=== PATIENT | female | born 1955 | race Caucasian/White ===

== ENCOUNTER → 2023-12-01 09:24 | Outpatient (REF) | payer MEDICARE, OTHER, SELFPAY | LOC: RAD 09:24 | PROVIDERS: ATTENDING PHYSICIAN Obstetrics & Gynecology; FAMILY PHYSICIAN Internal Medicine Geriatric Medicine | DX: Z78.0 Asymptomatic menopausal state (principal); M85.80 Other specified disorders of bone density and structure, unspecified site; Z01.419 Encounter for gynecological examination (general) (routine) without abnormal findings | CPT/HCPCS: 77080 ==

== ENCOUNTER → 2023-12-23 16:38 | Outpatient (REF) | payer MEDICARE, OTHER, SELFPAY | LOC: MRI 3T 16:38 | PROVIDERS: ATTENDING PHYSICIAN Obstetrics & Gynecology; FAMILY PHYSICIAN Internal Medicine Geriatric Medicine | DX: Z91.89 Other specified personal risk factors, not elsewhere classified (principal) | CPT/HCPCS: 77049; A9585 ==

== ENCOUNTER 2024-01-01 10:28 | Emergency (ER) | payer MEDICARE, OTHER, SELFPAY ==
[2024-01-01 10:37] VITALS: BP 179/82
[2024-01-01] MEDS: MOTRIN 600 MG PO (12:19)
--- NOTE | 2024-01-01 13:20 | ED.GENMED ---
History of Present Illness
General
Chief Complaint: Fall
Source: patient
Time Seen by Provider: 01/01/24 11:06
History of Present Illness
History of Present Illness:
68yoF with no significant past medical history presenting for evaluation after a fall shortly prior to arrival. Patient was running when she tripped on wet leaves and landed on her bilateral hands and knees. She denies any head strike or LOC. She
sustained lacerations to bilateral knees during the fall. Patient reports bilateral knee pain. No other complaints. Last Tdap was 3 years ago.
Past History
Past History
ED Past Medical History: Other (Trigeminal neuralgia)
ED Past Surgical History: and Orthopedic
Social History
Tobacco: Non-smoker
Personal:
Phy Exam
General Physical Exam
General Presentation: well appearing and no apparent distress
General age: appears stated age
General Skin: warm and dry
General Habitus: normal
General Mental: alert
ENT Exam
ENT Exam: normocephalic
Pulmonary Exam
Pulmonary Exam: no respiratory distress
Neurological Exam
Neurological Exam: alert, no motor deficits, normal gait and other
[place] Coma Scale
Eye Opening: Spontaneous
Verbal Response: Oriented
Motor Response: Obeys Commands
GCS Total Score: 15
Musculoskeletal Exam
Musculoskeletal Exam: other (V shaped laceration present to the anterior R knee. Jagged lacerations present to the L knee with surrounding tenderness. Both lacerations are contaminated with gravel. )
Skin Exam
Skin Exam: normal color and warm/dry
Psychiatric Exam
Psychiatric Exam: normal mood/affect
Course
Orders/Labs/Results
Orders:
Orders
01/01/24 10:40
CR Knee - Left 4 Or More View* Urgent
Comment:
Reason For Exam: fall
Knee, Right 4 or More Views [CR Knee- Right 4 Or More View*] Urgent
Comment:
Reason For Exam: fall
01/01/24 12:17
Ibuprofen [Motrin] 600 mg PO NOW STA
01/01/24 13:52
Bacitracin Zinc [Bacitracin Ointment] See Dose Instructions TOPICAL PRN PRN
Vital Signs
Initial and Last Documented VS:
Initial Vital Signs
Temp Pulse Resp BP Pulse Ox
98.1 F 93 16 179/82 96
01/01/24 10:37 01/01/24 10:37 01/01/24 10:37 01/01/24 10:37 01/01/24 10:37
Last Documented Vital Signs
Temp Pulse Resp BP Pulse Ox
98.1 F 93 16 179/82 96
01/01/24 10:37 01/01/24 10:37 01/01/24 10:37 01/01/24 10:37 01/01/24 10:37
Procedures
Laceration Closure
Right Anterior Knee:
Status of Wound: dirty and imbedded foreign material
Size of Wound in cm: 6
Description of Wound Edges: ragged and other (V shaped laceration with flap)
Preparation: cleaned with saline and cleaned with Betadine
Anesthesia: 1% Lidocaine with epi
Revision/Debridement: debrided and irrigate-direct pressure
Wound exploration: extensive cleaning of contaminated wound and all visible FB removed
Type of Closure: single layer closure
Skin Closure Material: 3-0 nylon
Number of sutures: 8
Left Anterior Knee:
Status of Wound: dirty and imbedded foreign material
Size of Wound in cm: 4
Description of Wound Edges: ragged and surrounded by abrasion
Preparation: cleaned with saline and cleaned with Betadine
Anesthesia: 1% Lidocaine with epi
Revision/Debridement: debrided and irrigate-direct pressure
Wound exploration: extensive cleaning of contaminated wound and all visible FB removed
Type of Closure: single layer closure
Skin Closure Material: 3-0 nylon
Number of sutures: 6
MDM/Problems Addressed
Differential Diagnosis Includes:
68yoF here with bilateral knee lacerations after falling while running. Jagged lacerations noted on exam with imbedded gravel. She is hypertensive on arrival with otherwise normal vitals. Differential diagnosis includes but is not limited to:
laceration, contusion, fracture
X-rays of bilateral knees obtained which are negative for fractures. Wounds were extensively irrigated and all visible gravel was removed. Wounds were repaired as above. She tolerated well without immediate complications. Will start on Augmentin for
infection prophylaxis. Home wound care discussed. Patient advised to have sutures removed in 14 days and she was advised to return to the ED with any signs of infection. She expressed understanding and was discharged in stable condition.
*Critical Care Note
Total Time (30-74mins, 75-104mins- exclusive of procedures): Not Applicable
ED Attending Note
-
Portions of this chart may have been created with voice recognition software.� Occasional wrong word or��sound alike� substitutions may have occurred due to the inherent limitations of voice recognition software.
Discharge Plan
Departure
Patient Disposition: Home (Routine Discharge)
Date of Disposition: 01/01/24
Time of Disposition: 13:22
Patient with high blood pressure during this ER visit?: Yes
Discharge Problem:
Laceration of knee with foreign body
Instructions: Laceration Repair With Stitches (DC)
Prescriptions:
New
amoxicillin-pot clavulanate 875-125 mg tablet
1 tab PO BID Qty: 14 0RF
No Action
gabapentin 300 MG capsule
600 mg PO TID PRN (Reason: pain)
oxycodone 5 MG tablet
5 mg PO Q4HPRN PRN (Reason: pain) Qty: 30 0RF
Referrals:
Piotr Hester MD [Family Provider] -
Activity Restrictions/Additional Instructions:
Keep wound clean and dry. Do not get wet for the first 24 hours. Change dressings daily. Take Augmentin for infection prevention.
Sutures should be removed in 14 days. Return to the ER with any signs of infection.
Interventions
Interventions:
*Risk Screen - Suicide Last Done: 01/01/24 10:37
*General Assessment Last Done: 01/01/24 10:37
*Neglect/Abuse Screening Last Done: 01/01/24 10:37
ED- Fall Risk Assessment Last Done: 01/01/24 14:16
*Nursing Disposition Last Done: 01/01/24 14:16
ED-Musculoskeletal Assessment Last Done: 01/01/24 12:24
ED- Neurological Assessment Last Done: 01/01/24 12:24
ED-Skin Assessment Last Done: 01/01/24 12:24
Discharge Date and Time
Discharge Date/Time: 01/01/24 14:17
Print Language: MACEDONIAN
== END 2024-01-01 14:17 | disposition home or self-care (01) ==
LOC: EMR 10:28
PROVIDERS: EMERGENCY PHYSICIAN Emergency Medicine; FAMILY PHYSICIAN Internal Medicine Geriatric Medicine
DX: S81.022A Laceration with foreign body, left knee, initial encounter (principal); S81.021A Laceration with foreign body, right knee, initial encounter; W18.09XA Striking against other object with subsequent fall, initial encounter
CPT/HCPCS: 12034; 99283; 73564

== ENCOUNTER 2024-01-03 19:15 | Inpatient (IN) | payer MEDICARE, OTHER, SELFPAY ==
[2024-01-03] VITALS (7 sets, daily range): BP systolic 131–181; BP diastolic 59–84; BMI 19.8
--- NOTE | 2024-01-03 16:41 | ED.GENMED ---
History of Present Illness
General
Chief Complaint: Skin Problem
Source: patient
Exam Limitations: none
Time Seen by Provider: 01/03/24 16:20
History of Present Illness
History of Present Illness:
See MDM
Past History
Past History
ED Past Medical History: Other (Trigeminal neuralgia)
ED Past Surgical History: and Orthopedic
Social History
Tobacco: Non-smoker
Personal:
Phy Exam
Physical Exam
Physical Exam:
See MDM
Course
Orders/Labs/Results
Orders:
Orders
01/03/24 16:36
Doxycycline Hyclate [Vibramycin] 100 mg 0.9% Sodium Chloride 250 ml [Nss] 250 ml IV NOW
01/03/24 17:07
Complete Blood Count/With Diff Urgent
Wound Culture [Wound/Abscess/Other Culture] Urgent
ROBERT Source: Abscess
Specimen Description:
Date Specimen was Collected: 01/03/24
Time Specimen was Collected: 16:34
Comment: R knee
01/03/24 18:04
Comprehensive Metabolic Panel Urgent
Abnormal Lab Results
01/03/24
17:07
WBC 14.2 H 10^3/uL
(4.8-10.8)
RBC 4.13 L 10^6/uL
(4.20-5.40)
Hct 36.3 L %
(37.0-47.0)
MPV 11.0 H fL
(7.4-10.4)
Abs Immat Gran (auto) 0.1 H 10^3/uL
(0-0.05)
Absolute Neuts (auto) 10.9 H 10^3/uL
(1.4-6.5)
Absolute Monos (auto) 1.4 H 10^3/uL
(0.1-0.6)
Neutrophils % 77.2 H %
(42.2-75.2)
Lymphocytes % 9.9 L %
(20.5-51.1)
Monocytes % 10.1 H %
(1.7-9.3)
01/03/24 17:07
Vital Signs
Initial and Last Documented VS:
Initial Vital Signs
Temp Pulse Resp BP Pulse Ox
98.0 F 86 16 180/80 98
01/03/24 15:39 01/03/24 15:39 01/03/24 15:39 01/03/24 15:39 01/03/24 15:39
Last Documented Vital Signs
Temp Pulse Resp BP Pulse Ox
98.0 F 72 13 167/74 99
01/03/24 15:39 01/03/24 17:45 01/03/24 17:45 01/03/24 17:00 01/03/24 17:45
MDM/Problems Addressed
Differential Diagnosis Includes:
HPI and MDM Narrative:
68-year-old female presenting with redness and swelling to her right knee. Patient had a trip and fall recently and came to the emergency department requiring stitches to both knees. Patient does acknowledge that the wounds appeared dirty with
gravel. She states that a lot of time spent emergency department to clean out the wounds
Patient was placed on Augmentin. Over the past day or so, she noted worsening swelling to the right knee where the wound was stitched.
On exam, patient has cellulitic changes around the right knee wound. The skin overlying the knee is also cellulitic but there is no micromotion tenderness to suspect intra-articular infection
There is discharge noted to the medial aspect of the wound. Because of this, 2 stitches were removed and the wound was washed with Betadine and saline. Pus was removed and culture was placed
Patient will require MRSA coverage. Will start doxycycline
Physical exam
General: Well appearing and non-toxic
HEENT: protecting airway
Neck: appears supple
CV: No evidence of cyanosis
Resp: No accessory muscle use
Abd: Non-distended
Extremities: Swelling and erythema to right knee and right knee wound
Neuro: alert
Psych: Normal affect
Skin: Infected right knee wound with pus.
Problems Addressed including Acute and Chronic Conditions affecting care:
1. [Infected right knee wound
Acuity: acute
Prognosis: stable
Details: Patient feeling antibiotics. Will increase coverage to cover MRSA. Will start doxycycline. Wound culture obtained
Updates
Technically, patient is failing antibiotic coverage. Patient started IV doxycycline and will admit
Differential Diagnosis (but not limited to): Cellulitis, abscess
Testing considered: The x-ray
Drug therapy (if applicable): OTC meds, please see d/c instruction regarding Rx drugs
Amount and/or Complexity of Data Reviewed
Clinical info obtained from: Patient
External data reviewed: N/A
Labs I independently reviewed (but not limited to): Leukocytosis
Radiology: N/A
Pulse Ox: not hypoxic
EKG independently reviewed: N/A
Rigging Engineer: N/A
Critical Care: N/A
Risk of Complication:
Social Determinants of health: Good social support
Discussed with other providers: Hospitalist
Escalation of Care includes Admit/Obs: Given outpatient failure of antibiotics, will admit for IV antibiotics
Occasional wrong word or 'sound a like' substitutions may have occurred due to the inherent limitations of voice recognition software. Read the chart carefully and recognize, using context, where substitutions have occurred.
*Critical Care Note
Total Time (30-74mins, 75-104mins- exclusive of procedures): Not Applicable
ED Attending Note
-
Portions of this chart may have been created with voice recognition software.� Occasional wrong word or��sound alike� substitutions may have occurred due to the inherent limitations of voice recognition software.
Discharge Plan
Departure
Patient Disposition: Admit
Date of Disposition: 01/03/24
Time of Disposition: 17:38
Admit to: Med/Surg
Presentation/result/management discussed w/ accepting MD/DO: Hospitalist
Patient with high blood pressure during this ER visit?: Yes
Discharge Problem:
Infected laceration
Prescriptions:
New
doxycycline hyclate 100 mg capsule
100 mg PO BID Qty: 20 0RF
No Action
gabapentin 300 MG capsule
600 mg PO TID PRN (Reason: pain)
oxycodone 5 MG tablet
5 mg PO Q4HPRN PRN (Reason: pain) Qty: 30 0RF
amoxicillin-pot clavulanate 875-125 mg tablet
1 tab PO BID Qty: 14 0RF
Referrals:
Piotr Hester MD [Family Provider] -
Interventions
Interventions:
*Risk Screen - Suicide Last Done: 01/03/24 15:39
*General Assessment Last Done: 01/03/24 17:08
*Neglect/Abuse Screening Last Done: 01/03/24 15:39
*ED COVID-19 Vaccine History Last Done: 01/03/24 17:08
ED-Skin Assessment Last Done: 01/03/24 17:12
Discharge Date and Time
Print Language: SPANISH
[2024-01-03] MEDS: VIBRAMYCIN 260 MG IV (17:07)
[2024-01-03 17:18] LABS: % Basophils 0.4 % (0-2); % Immature Granulocytes 0.4 % (0-0.5); % Lymphocytes 9.9 % (20.5-51.1); % Monocytes 10.1 % (1.7-9.3); % Neutrophils 77.2 % (42.2-75.2); Absolute Basophils 0.1 10^3/uL (0-0.2); Absolute Eosinophils 0.3 10^3/uL (0-0.7); Absolute Immature Granulocytes 0.1 10^3/uL (0-0.05); Absolute Lymphocytes 1.4 10^3/uL (1.2-3.4); Absolute Monocytes 1.4 10^3/uL (0.1-0.6); Absolute Neutrophils 10.9 10^3/uL (1.4-6.5); Hematocrit 36.3 % (37.0-47.0); Hemoglobin 12.4 g/dL (12.0-16.0); Mean Corp Hgb Conc. 34.2 g/dL (33.0-37.0); Mean Corpuscular Volume 87.9 fL (81.0-99.0); Nucleated Red Blood Cells % 0 %; Platelet Count 242 10^3/uL (130-400); Red Blood Cell Count 4.13 10^6/uL (4.20-5.40); Red Cell Dist. Width 13.1 % (11.5-14.5); White Blood Cell Count 14.2 10^3/uL (4.8-10.8)
--- NOTE | 2024-01-03 18:10 | HPS.HSE ---
Family Physician
-
Family Physician: Piotr Hester
Chief Complaint
-
Right knee swelling
History of Present Illness
Patient is a 68-year-old female with no significant past medical history who presented to [facility] ED for evaluation of redness and swelling of right knee. Patient 2 days ago was in ED for evaluation following a fall and required sutures to
bilateral knees. Patient denies any fever, chills, shortness of breath, cough, nausea, vomiting, constipation, diarrhea or urinary symptoms.
Medical History
Past Medical History
Past Medical History: Reports Other
Additional Past Medical History:
Hypertension
Trigeminal neuralgia
Past Surgical History: Reports Other
Additional Past Surgical History:
Tonsillectomy
x2
Social History
Tobacco: Non-smoker
Alcohol: Occasional (rare)
Drug: None
Personal:
Living: With Family
Employment: Employed
Family History
Family History: Not pertinent
Allergies / Home Medications
Allergies reflects when Allergies were last updated in [employer].
Home Medications with original date entered in [employer]
Allergy/Medication List:
Allergies
Allergy/AdvReac Type Severity Reaction Status Date / Time
jalapeno Allergy Anaphylaxis Uncoded 01/03/24 17:00
Home Medications
gabapentin 300 mg capsule 600 mg PO TIDPRN PRN moderate pain 01/05/19
amoxicillin 875 mg-potassium clavulanate 125 mg tablet 1 tab PO BID #14 tabs 01/01/24
ibuprofen 200 mg tablet (Advil) 400 mg PO Q6HPRN PRN knee pain 01/03/24
losartan 50 mg tablet 50 mg PO HS 01/03/24
Review of Systems
-
History Source: Patient
Constitutional: Reports No Symptoms
EENT: Reports No Symptoms
Respiratory: Reports No Symptoms
Cardiac: Reports No Symptoms
Abdomen/GI: Reports No Symptoms
: Reports No Symptoms
Musculoskeletal: Reports Joint Pain and Joint Swelling (bilateral knee injuries with sutures in place, edema, erythema and warm to touch)
Skin: Reports No Symptoms
Neurological: Reports No Symptoms
Endocrine: Reports No Symptoms
Hematologic/Lymphatic: Reports No Symptoms
Psych: Reports No Symptoms
Physical Exam
Vital Signs
Vital Signs
Temp Pulse Resp BP Pulse Ox
98.0 F 72 13 167/74 99
01/03/24 15:39 01/03/24 17:45 01/03/24 17:45 01/03/24 17:00 01/03/24 17:45
Physical Exam
General: Well Developed, Well Nourished, No Apparent Distress, Comfortable and Conversant
HEENT: NormoCephalic, Moist mucous membranes and Atraumatic
Respiratory: Clear and Non Labored Respirations; No Wheezes, Rales, Rhonchi or Crackles
Cardiac: S1/S2 and Regular Rhythm; No Murmur, Rub or Gallop
Breast: Deferred by me
GI: Soft, Non Tender, Non Distended and Normal Bowel Sounds; No Organomegaly
Rectal: Deferred by Provider
Genito-urinary: Deferred by me
Musculoskeletal: No Clubbing, No Cyanosis, No Edema and Other (bilateral knee injuries with sutures in place, edema, erythema and warm to touch)
Skin: Warm, Dry, IV/Catheter Site and Other (bilateral knee lacerations with sutures in place); No Rash
Neuro: Awake, Alert, AO x 3 and Nonfocal/grossly intact
Hematologic/Lymphatic: No Lymphadenopathy
Psych: Calm and Intact Judgment/Insight
Laboratory Results
-
01/03/24 17:07
Data Reviewed
-
Lab Data: Labs Reviewed by me (WBC 14.2)
Impression/Plan
-
IMPRESSION/PLAN:
#Cellulitis
- Admit to med/surg
- IV Vancomycin
- PRN Tylenol and Toradol for pain
- Consult ID
- Consult Ortho
- Wound culture pending
#Hypertension
- continue losartan
#Trigeminal neuralgia
- continue gabapentin
Full Code
DVT Prophylaxis: Lovenox Sq
--- NOTE | 2024-01-03 18:29 | W.PN.UPDATE ---
Update Note
Progress Note Update
Seen and examined by me independently in collaboration with the nurse practitioner June.
Past medical history/social history/medication/allergies reviewed.
Lab data and imaging data reviewed.
68-year-old female had a mechanical fall landing on the knees with lacerations over bilateral knees 3 days ago. She had a lot of gravel which needed to be washed off and sutured in the ER here.
She was put on oral Augmentin at that time.
She comes back with pain and swelling of the suture line area and also purulence coming out of right laceration sutured area.
No fever or chills.
Not a diabetic. No history of peripheral arterial disease. Immunocompetent patient.
Apart from hypertension and other significant medical history.
Afebrile and hemodynamically stable. Nontoxic looking. Heart sound S1 plus S2 heard regular without a murmur.
Bilateral knee with a laceration and suturing noted. The left suture line looks okay but the right knee suture line is still some purulence in the medial aspect. Apparently there was more pus in the ER which needs to be expressed. 2 of the suture
lines were released in the ER today. There is some mild medial knee effusion evident. According to the who is a physician there was no knee swelling at the time of trauma and this may be new finding.
Infected lacerated right knee wound with purulence. Leukocytosis noted but no evidence of sepsis at the current time.
With the rapidity of purulent wound will start on IV vancomycin. Consult ID. Blood cultures if there is fever spike and MRSA swab.
Will discuss with Ortho regarding diagnostic utility of right knee arthrocentesis.
[2024-01-03 19:08] LABS: ALT (SGPT) 21 U/L (0-35); AST (SGOT) 24 U/L (14-36); Albumin 3.9 g/dl (3.5-5.0); Alkaline Phosphatase 76 U/L (38-126); Blood Urea Nitrogen 18 mg/dl (7-17); Calcium 9.1 mg/dl (8.4-10.2); Carbon Dioxide 27 mmol/L (22-30); Chloride 105 mmol/L (98-107); Glucose 101 mg/dl (70-99); Potassium 3.8 mmol/L (3.5-5.1); Sodium 143 mmol/L (135-145); Total Bilirubin 0.3 mg/dl (0.2-1.3); Total Protein 6.2 g/dl (6.3-8.2); eGFR > 60.00
[2024-01-03] MEDS: COZAAR 50 MG PO (21:34)
[2024-01-03] MEDS: VANCOCIN 300 ML IV (21:35)
[2024-01-03] MEDS: VANCOCIN 300 MG IV (21:35)
--- NOTE | 2024-01-03 22:08 | PTCARENOTE ---
Received pt from ED via stretcher. Pt ambulated to bed without assistance. AAOx3, no complaints of pain. Bilateral knees wrapped from ED. Oriented to floor, call kelley within reach.
--- NOTE | 2024-01-03 22:29 | PHA.VAN.IN ---
Assessment
- Assessment
Renal Function: Appears similar to baseline
Concomitant Antimicrobials: NONE
- Previous Dosing Experience
Previous Regimen: NONE
AUC Dosing Plan
- Dosing Variables
Dosing Weight (kg): 63.9
Dosing CrCl (ml/min): 93
Vd coefficient (L/kg): 0.7
- Empiric Dosing
Initial / Loading Dose: 1500MG
Maintenance Regimen: 1GM IV Q12H
Estimated AUC (mcg*h/mL): 570
Estimated Peak (mcg*h/mL): 35.8
Estimated Trough (mcg/ml): 14.6
Estimated Half Life (H): 8.5
Pharmacokinetics Vancomycin I
- -
Patient Age: 68
Patient Sex: Female
Vancomycin Day #: 1
Indication: Skin And Soft Tissue (KNEE WOUNDS )
Requesting Provider: LANCE
Height / Weight:
Height 5 ft 8 in
Actual Weight 58.995 kg
Adjusted BW in k.9
- Vital Signs / Lab Results
Temp Pulse Resp BP Pulse Ox
97.7 F 81 16 174/84 96
01/03/24 20:17 01/03/24 21:34 01/03/24 20:17 01/03/24 21:34 01/03/24 20:17
Lab Results - Hematology
01/03/24
17:07
WBC 14.2 H
Lab Results - Chemistry
01/03/24
18:39
BUN 18 H
Creatinine 0.6
Albumin 3.9
[2024-01-04] MEDS: VANCOCIN 200 IV (06:08)
[2024-01-04 06:50] VITALS: BP 181/95
--- NOTE | 2024-01-04 07:59 | W.PN.UPDATE ---
Update Note
Progress Note Update
Pt seen and chart reviewed
DX:
Cellulitis R knee
L knee wound looks well
RX:
No need for surgery or aspiration
Local wound care ordered by me
IV antibx until improved then switch to po regimen
Will F/U with either myself or her
thanks
GGMD
[2024-01-04 08:11] LABS: Hematocrit 35.5 % (37.0-47.0); Mean Corp Hgb Conc. 33.8 g/dL (33.0-37.0); Mean Corpuscular Hgb 30.3 pg (27.0-31.0); Mean Corpuscular Volume 89.6 fL (81.0-99.0); Mean Platelet Volume 11.7 fL (7.4-10.4); Platelet Count 231 10^3/uL (130-400); Red Blood Cell Count 3.96 10^6/uL (4.20-5.40); Red Cell Dist. Width 12.8 % (11.5-14.5); White Blood Cell Count 13.5 10^3/uL (4.8-10.8)
[2024-01-04] MEDS: BACITRACIN OINTMENT 1 APPLIC TOPICAL ×2 (08:31→20:06)
--- NOTE | 2024-01-04 08:47 | PHA.VAN.FU ---
Vancomycin Assessment / Plan
- Assessment
Renal Function: No New Labs Today
WBC's are: Stable
In the past 24 hrs, patient has been: Afebrile
- Dosing Plan
Adjust Regimen to: Vanc 750mg Q12H starting at 1800
New Regimen Predicts: AUC (427 - 497), Peak (26.8 - 30.4), Trough (10.9 - 13.2)
- Monitoring Plan
No level(s) ordered at this time: consider levels in next few days
- Follow Up
Pharmacy will continue to follow.
Vancomycin Follow UP
- -
Patient Age: 68
Patient Sex: Female
Vancomycin Day #: 2
Indication: Skin And Soft Tissue
Requesting Provider: Barbie Ackerman
Pertinent Antimicrobial Allergies:
no pertinent antimicrobial allergies
Height / Weight:
Height 5 ft 8 in
Actual Weight 58.995 kg
IBW in k.9
Pertinent Past Medical History: BMI ~20
- Vital Signs / Lab Results
Temp Pulse Resp BP Pulse Ox
98.8 F 81 18 167/78 100
01/03/24 22:33 01/03/24 22:33 01/03/24 22:33 01/03/24 22:33 01/03/24 22:33
Lab Results - Hematology
01/03/24 01/04/24
17:07 06:33
WBC 14.2 H 13.5 H
Lab Results - Chemistry
01/03/24
18:39
BUN 18 H
Creatinine 0.6
Albumin 3.9
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
[2024-01-04] MEDS: STERILE WATER FOR INJECTION 10 ML IV ×2 (14:58→21:11)
[2024-01-04] MEDS: MAXIPIME 1000 MG IV ×2 (14:58→21:11)
[2024-01-04 15:01] VITALS: BP 161/84
--- NOTE | 2024-01-04 15:25 | W.PN.HOSP.TC ---
Today's Communication/Plan
-
Cefepime to Vanco per ID
Follow WBC
Assessment / Plan
Assessment / Plan
Infected lacerated right knee wound with purulence. Afebrile today. No purulence noted today. Surrounding cellulitis noted. Appreciate orthopedic input - recommends to hold on arthrocentesis. Appreciate ID input. Cefepime being added to
vancomycin. Follow culture data. Follow-up for clinical improvement. Follow WBC.
Hypertension-continue with losartan
Anticipated Discharge: 24 - 48 hours
Subjective/Interval History
-
Date of Service: January 04, 2024
Feels okay.
No fever chills.
Denies any worsening of pain from her knee wounds.
No nausea vomiting with antibiotics.
Objective Data
-
Labs:
Laboratory Results
01/04/24
06:33
WBC 13.5 H
Hgb 12.0
Hct 35.5 L
Plt Count 231
Vital Signs:
Vital Signs
Temp Pulse Resp BP Pulse Ox
99.5 F 94 18 181/95 98
01/04/24 06:50 01/04/24 06:50 01/04/24 06:50 01/04/24 06:50 01/04/24 08:20
I&O
01/03/24 01/04/24 01/05/24
06:59 06:59 06:59
Intake Total 780 / 780
Balance 780 / 780
Review of Systems
-
Constitutional: Denies Fever
Respiratory: Denies Trouble Breathing
Cardiac: Denies Chest Pain
Abdomen/GI: Denies Abdominal Pain, Nausea or Vomiting
Neuro: Denies Dizzy or Headache
Physical Exam
-
General: Comfortable
Respiratory: Non Labored Respirations; Negative Accessory Resp Muscle Use
Cardiac: Regular Rhythm and S1/S2
GI: Soft
Skin: Other (Rt knee wound without drainage today; rt medial superior knee puffiness is better , can now see wrinkles of her skin. There is some lower medial thigh redness which i am not sure present yesterday. Left knee lacerated wound looks clean)
Neuro: AO x 3
Data Reviewed
-
Labs: Labs Reviewed by me
--- NOTE | 2024-01-04 16:42 | CM ---
Alert awake oriented patient who lives with her Piotr who lives in a 2 stroy home with 2 steps to enter and 13 steps to bed bathroom.
She is independent in driving and in all activities of daily living.Offered VN she declined.
No adaptive devices
Never had VN/SNF
Pharm[facility]
PCP Dr Hester
PLAN Home no needs
[2024-01-04] MEDS: VANCOCIN 150 IV (17:38)
[2024-01-04] MEDS: LOVENOX 40 MG SC (17:38)
[2024-01-04] MEDS: COZAAR 50 MG PO (21:11)
[2024-01-04 23:00] VITALS: BP 175/74
[2024-01-04] MEDS: TRANDATE 2.5 MG IV (23:37)
[2024-01-05] MEDS: MAXIPIME 1000 MG IV ×3 (05:19→21:11)
[2024-01-05] MEDS: STERILE WATER FOR INJECTION 10 ML IV ×3 (05:19→21:11)
[2024-01-05 05:23] VITALS: BP 160/79
[2024-01-05] MEDS: VANCOCIN 150 IV (05:39)
[2024-01-05 08:00] VITALS: BP 161/88
[2024-01-05] MEDS: BACITRACIN OINTMENT 1 APPLIC TOPICAL ×2 (10:14→20:34)
--- NOTE | 2024-01-05 11:03 | W.PN.HOSP.TC ---
Today's Communication/Plan
-
Continue current antibiotics. Follow wound culture data.
Increase losartan to twice daily.
Assessment / Plan
Assessment / Plan
Infected lacerated right knee wound with purulence. Surrounded by skin cellulitis . Afebrile and improving WBC. Improving cellulitis noted. Appreciate orthopedic input - recommends to hold on arthrocentesis. Appreciate ID input. cw Cefepime and
vancomycin. Follow culture data.
Hypertension-continue with losartan - increase to BID
Anticipated Discharge: Within 24 hours
Subjective/Interval History
-
Date of Service: January 05, 2024
Seeing improvement in her swelling around the right knee joint and also redness.
No fever chills.
No nausea vomiting.
When questioned about her blood pressure she says usually under control. She says she went on losartan more because of Raynaud's phenomenon in the legs than blood pressure per se. She has been on losartan for the last few months.
Objective Data
-
Labs:
Laboratory Results
01/05/24
06:58
WBC Pending
Hgb Pending
Hct Pending
Plt Count Pending
Vital Signs:
Vital Signs
Temp Pulse Resp BP Pulse Ox
98.1 F 96 16 161/88 97
01/05/24 08:00 01/05/24 08:00 01/05/24 08:00 01/05/24 08:00 01/05/24 08:00
I&O
01/04/24 01/05/24 01/06/24
06:59 06:59 06:59
Intake Total 780 / 780 870 / 870
Balance 780 / 780 870 / 870
Review of Systems
-
Constitutional: Denies Fever
EENT: Denies Sore Throat
Respiratory: Denies Cough or Trouble Breathing
Cardiac: Denies Chest Pain
Abdomen/GI: Denies Abdominal Pain, Nausea or Vomiting
Neuro: Denies Dizzy
Physical Exam
-
General: No Apparent Distress
HEENT: Moist Mucous Membranes
Respiratory: Non Labored Respirations; Negative Accessory Resp Muscle Use
Skin: Other (Much improved redness over the right knee and also the inferiomedial right thigh area . Improved swelling as well.)
Neuro: AO x 3
Data Reviewed
-
Labs: Labs Reviewed by me
[2024-01-05] MEDS: COZAAR 50 MG PO ×2 (11:18→20:36)
[2024-01-05 12:21] LABS: Hematocrit 36.2 % (37.0-47.0); Hemoglobin 11.9 g/dL (12.0-16.0); Mean Corp Hgb Conc. 32.9 g/dL (33.0-37.0); Mean Corpuscular Hgb 29.9 pg (27.0-31.0); Mean Platelet Volume 12.1 fL (7.4-10.4); Platelet Count 263 10^3/uL (130-400); Red Blood Cell Count 3.98 10^6/uL (4.20-5.40); Red Cell Dist. Width 13.1 % (11.5-14.5); White Blood Cell Count 9.1 10^3/uL (4.8-10.8)
--- NOTE | 2024-01-05 13:29 | W.PN.ID1 ---
Date of Service
Date of Service: January 05, 2024
Today's Communication
Continue cefepime.
Assessment / Plan
# Right knee laceration wound infection with cellulitis - improving
- S/p recent fall on outside gravel
- Uptodate with tetanus vaccine
- Wound cx GNR
- Continue cefepime (d2)
-DC Vancomycin.
- Anticipate transition to po abx tomorrow.
# Leukocytosis due to cellulitis, resolved
Chief Complaint
-: Cellulitis
Subjective / Review of Systems
Right knee redness worsened last night, but much improved today.
Vital Signs / Physical Exam
Vital Signs
Vital Signs
Temp Pulse Resp BP Pulse Ox
98.1 F 96 16 158/73 99
01/05/24 08:00 01/05/24 08:00 01/05/24 08:00 01/05/24 11:18 01/05/24 11:42
Physical Exam
Constitutional: No Acute Distress and Comfortable
Wound: Other (Right knee erythema and induration significantly decreased; wound stable without drainage)
Objective Data
Lab Data
Lab Results
01/05/24 06:58
01/03/24 18:39
Total Bilirubin 0.3 mg/dl (0.2-1.3) 01/03/24 18:39
AST 24 U/L (14-36) 01/03/24 18:39
ALT 21 U/L (0-35) 01/03/24 18:39
Alkaline Phosphatase 76 U/L (38-126) 01/03/24 18:39
Most recent labs reviewed.
Micro Results:
01/03/24 17:07 Wound Culture - Preliminary
Abscess Gram negative bacilli
Gram Stain - Preliminary
01/03/24 20:35 MRSA Screen - Final
Nose No Methicillin Resistant Staphylococcus aureus isolated.
01/01/24 bilateral Knee XRAY No acute osseous abnormality.
[2024-01-05 15:00] VITALS: BP 166/77
--- NOTE | 2024-01-05 17:24 | CM ---
ID involved.
IV antibiotic continue.
Awaiting wound cultures.
Pt declined VN
PLAN Home no needs
[2024-01-05] MEDS: LOVENOX 40 MG SC (17:48)
[2024-01-05 23:11] VITALS: BP 156/73
[2024-01-06] MEDS: STERILE WATER FOR INJECTION 10 ML IV (06:24)
[2024-01-06] MEDS: MAXIPIME 1000 MG IV (06:24)
[2024-01-06 07:22] VITALS: BP 153/81
[2024-01-06] MEDS: COZAAR 50 MG PO (07:52)
[2024-01-06] MEDS: BACITRACIN OINTMENT 1 APPLIC TOPICAL (10:00)
[2024-01-06 11:30] VITALS: BP 148/62
--- NOTE | 2024-01-06 11:32 | W.PN.ID1 ---
Date of Service
Date of Service: January 06, 2024
Today's Communication
Transition cefepime (d3) to doxycycline 100 mg po bid x 5 more days
Assessment / Plan
# Right knee laceration wound infection with cellulitis - improving
- S/p recent fall on outside gravel
- Uptodate with tetanus vaccine
- Wound cx Enterobacter
- Transition cefepime (d3) to doxycycline 100 mg po bid x 5 more days
# Leukocytosis due to cellulitis, resolved
Chief Complaint
-: Cellulitis
Subjective / Review of Systems
Feels well.
Vital Signs / Physical Exam
Vital Signs
Vital Signs
Temp Pulse Resp BP Pulse Ox
98 F 94 20 153/81 99
01/06/24 07:22 01/06/24 07:22 01/06/24 07:22 01/06/24 07:22 01/06/24 10:35
Physical Exam
Wound: Other (right knee: V shape wound with subcutaneous tissue, surrounding erythema receded)
Objective Data
Lab Data
Lab Results
01/05/24 06:58
01/03/24 18:39
Total Bilirubin 0.3 mg/dl (0.2-1.3) 01/03/24 18:39
AST 24 U/L (14-36) 01/03/24 18:39
ALT 21 U/L (0-35) 01/03/24 18:39
Alkaline Phosphatase 76 U/L (38-126) 01/03/24 18:39
Most recent labs reviewed.
Micro Results:
01/03/24 17:07 Wound Culture - Final
Abscess Enterobacter cloacae
Gram Stain - Final
01/03/24 20:35 MRSA Screen - Final
Nose No Methicillin Resistant Staphylococcus aureus isolated.
01/01/24 bilateral Knee XRAY No acute osseous abnormality.
Care Review
Plan reviewed with: Physician (Dr. Butch Her)
--- NOTE | 2024-01-06 11:45 | W.PN.HOSP.TC ---
Today's Communication/Plan
-
DC
Assessment / Plan
Assessment / Plan
Infected lacerated right knee wound with purulence. Surrounded by skin cellulitis . Afebrile and normalized WBC. Improving cellulitis noted. Appreciate orthopedic input - recommends to hold on arthrocentesis. Appreciate ID input. Wound culture
shows Enterobacter cloacae-ID recommend switching to doxycycline for 5 more days.
Hypertension-continue with losartan - increased to BID.Improved reads.
Medically stable for DC home today
DW who is physician and went over the plan
Total time of DC 32 min
Anticipated Discharge: Today
Subjective/Interval History
-
Date of Service: January 06, 2024
pain not much no issue from the knees.
No fever chills.
Tolerating antibiotics without nausea vomiting or diarrhea.
Objective Data
-
Vital Signs:
Vital Signs
Temp Pulse Resp BP Pulse Ox
98 F 94 20 153/81 99
01/06/24 07:22 01/06/24 07:22 01/06/24 07:22 01/06/24 07:22 01/06/24 10:35
I&O
01/05/24 01/06/24 01/07/24
06:59 06:59 06:59
Intake Total 870 / 870 1000 / 1000
Balance 870 / 870 1000 / 1000
Review of Systems
-
Respiratory: Denies Trouble Breathing
Cardiac: Denies Chest Pain
Neuro: Denies Dizzy
Physical Exam
-
General: No Apparent Distress
Respiratory: Non Labored Respirations; Negative Accessory Resp Muscle Use
Cardiac: Regular Rhythm and S1/S2; Negative Tachycardic
GI: Soft
Musculoskeletal: No Edema
Skin: Other (knees in dressing;see my note from yesterday -improving cellulitis)
Neuro: AO x 3
Psych: Calm
Data Reviewed
-
Labs: Labs Reviewed by me
--- NOTE | 2024-01-06 12:20 | PTCARENOTE ---
Reviewed discharge instructions with patient. Patient verbalizes understanding of teaching and denies questions at this time. Peripheral IV removed. Patient left via wheelchair with staff member. Patient has car parked on property and medically
clear to drive.
--- NOTE | 2024-01-06 16:13 | CM ---
MD entered order for discharge..
Pt offered VN she declined .
Family drove her home.
IMM reviewed she said she was ready for dc.
PLAN Home no needs
== END 2024-01-06 13:48 | disposition home or self-care (01) | DRG 603 ==
LOC: 4 EAST ACU 19:15
PROVIDERS: Nurse Practitioner Family; ADMITTING PHYSICIAN Internal Medicine; CONSULT PHYSICIAN Orthopaedic Surgery Hand Surgery; EMERGENCY PHYSICIAN Student in an Organized Health Care Education/Training Program; FAMILY PHYSICIAN Internal Medicine Geriatric Medicine; OTHER PHYSICIAN Internal Medicine Infectious Disease
DX: L03.115 Cellulitis of right lower limb (principal); B95.2 Enterococcus as the cause of diseases classified elsewhere; I10 Essential (primary) hypertension; M25.461 Effusion, right knee; G50.0 Trigeminal neuralgia; S81.021D Laceration with foreign body, right knee, subsequent encounter; S81.012D Laceration without foreign body, left knee, subsequent encounter; W01.0XXD Fall on same level from slipping, tripping and stumbling without subsequent striking against object, subsequent encounter; Z79.899 Other long term (current) drug therapy; Z87.81 Personal history of (healed) traumatic fracture
CPT/HCPCS: 73564; 80053; 85025; 85027; 87070; 87077; 87186; 87205; 96365; 99285

== ENCOUNTER 2024-05-18 06:24 | Day surgery (SDC) | payer MEDICARE, OTHER, SELFPAY | END 2024-05-18 09:24 | disposition home or self-care (01) | LOC: GI 06:24 | PROVIDERS: ATTENDING PHYSICIAN Internal Medicine | DX: Z12.11 Encounter for screening for malignant neoplasm of colon (principal); K64.8 Other hemorrhoids; K57.30 Diverticulosis of large intestine without perforation or abscess without bleeding; K55.20 Angiodysplasia of colon without hemorrhage; D12.8 Benign neoplasm of rectum; K63.89 Other specified diseases of intestine | CPT/HCPCS: 45385; 45380; 88305 ==

== ENCOUNTER → 2024-07-04 13:31 | Outpatient (REF) | payer MEDICARE, OTHER, SELFPAY | LOC: WDC 13:31 | PROVIDERS: ATTENDING PHYSICIAN Internal Medicine Geriatric Medicine | DX: Z12.31 Encounter for screening mammogram for malignant neoplasm of breast (principal) | CPT/HCPCS: 77063; 77067 ==